=== PATIENT | male | born 1980 | race Caucasian/White ===

== ENCOUNTER 2022-02-25 12:46 | Emergency (ER) | payer OTHER, SELFPAY ==
--- NOTE | ~2022-02-25 | XR_ITS ---
EXAMINATION: XR ankle LT min 3V DATE: 02/25/2022 13:05 INDICATION: Left ankle inversion injury. Left ankle pain. TECHNIQUE: 4 views of left ankle were obtained. COMPARISON: None. FINDINGS: Bone alignment is normal. No fracture. Joint spaces are normal. There are enthesophytes at the posterior and plantar aspects of calcaneal tuberosity. IMPRESSION: 1. No fracture. Reviewed, dictated and finalized at location A. IMPRESSION: 1. No fracture.
--- NOTE | 2022-02-25 12:54 | ED.LOWEXIN ---
HPI - Extremity Injury (Lower) General Chief Complaint: Extremity Injury, Lower Stated Complaint: Left Ankle Injury Time Seen by Provider: 02/25/22 12:55 Source: patient and RN notes reviewed History of Present Illness HPI Narrative: Patient is a 41-year-old male who presents the urgent care with complaints of left ankle pain. Patient states that he was at work, picking up a car from a customer, and rolled the ankle. Patient states that occurred approximately 1 hour ago. States that he has no pain at rest only pain with ambulation and weightbearing. Patient has not done anything [id number] for his pain prior to arrival. No other acute complaints or injuries. No acute distress noted. Patient aware of the plan of care. Some parts of this dictation were generated by voice recognition software and may contain typographical and/or grammatical inaccuracies. Related Data Home Medications Medication Instructions Recorded Confirmed No Home Medications 02/25/22 02/25/22 Allergies Allergy/AdvReac Type Severity Reaction Status Date / Time No Known Allergies Allergy Verified 02/25/22 13:07 Review of Systems Review of Systems: CONSTITUTIONAL: Denies fever, chills, or sweats. EYES: Denies visual changes, redness, or discharge. ENT: Denies rhinorrhea, congestion, sore throat, or otalgia. CARDIOVASCULAR: Denies chest pain, palpitations, or edema. RESPIRATORY: Denies cough or dyspnea. GASTROINTESTINAL: Denies abdominal pain, nausea, vomiting, or diarrhea. GENITOURINARY: Denies dysuria or hematuria. SKIN: Denies rash or itching. MUSCULOSKELETAL: Reports of left ankle pain and swelling NEUROLOGIC: Denies headache, numbness, or weakness. All other systems reviewed are negative, except as documented in HPI. Exam Narrative: GENERAL: This is a well-nourished, well-developed patient, in no apparent distress. HEAD: normocephalic, atraumatic. EYES: PERRL. Sclera clear/white. Vision is grossly intact. EARS: External ears normal NOSE: External nose normal with no obvious nasal discharge, nares without redness, no rhinorrhea. THROAT: Mucous membranes moist NECK: Neck supple SKIN: warm, intact with no suspicious lesions or rash, good texture and turgor. NEURO: awake, alert, and oriented to person, place and time. There were no obvious focal neurologic abnormalities. EXTREMITIES: Mild tenderness and edema noted to the posterior lateral left malleolus with exacerbated pain on flexion and weightbearing. Positive strong left pedal pulse with capillary refill less than 2 seconds. No obvious deformity to left lower extremity. Course Course Level of Care: Express Care Visit Vital Signs Vital signs: Vital Signs Temperature 98.5 F 02/25/22 12:55 Pulse Rate 84 02/25/22 12:55 Respiratory Rate 16 02/25/22 12:55 Blood Pressure 204/92 H 02/25/22 12:55 Pulse Oximetry 98 02/25/22 12:55 Oxygen Delivery Room Air 02/25/22 12:55 Temperature 98.5 F 02/25/22 12:55 Pulse Rate 84 02/25/22 12:55 Respiratory Rate 16 02/25/22 12:55 Blood Pressure 204/92 H 02/25/22 12:55 Pulse Oximetry 98 02/25/22 12:55 Oxygen Delivery Room Air 02/25/22 12:55 Reviewed-patient is informed that they may have pre-hypertension or hypertension based on a blood pressure reading in the department. I recommend the patient call the primary care provider listed on their discharge instructions or a physician of their choice this week to arrange follow-up for further evaluation of possible pre-hypertension or hypertension. MDM - Extremity Injury (Lower) MDM Narrative Medical decision making narrative: Reviewed x-ray results with the patient. He is aware that there is no fracture deformity noted to the left ankle. Advised the patient to keep it elevated with ice/Tylenol/ibuprofen for the next 3 to 5 days. Limit your weightbearing activity and avoid any strenuous activity. Wear the Eric wrap in a supportive shoe as directed. Follow-u
[2022-02-25 12:55] VITALS: BP 204/92; PULSE 84; RESP 16; TEMP 36.9; O2SAT 98
[2022-02-25 13:15] VITALS: BP 171/96
== END 2022-02-25 13:15 | disposition home or self-care (01) ==
PROVIDERS: Emergency Provider Nurse Practitioner Family
DX: S93.402A Sprain of unspecified ligament of left ankle, initial encounter (principal); S96.912A Strain of unspecified muscle and tendon at ankle and foot level, left foot, initial encounter; X50.9XXA Other and unspecified overexertion or strenuous movements or postures, initial encounter
CPT/HCPCS: 73610; 99213; G0463

== ENCOUNTER 2022-12-27 11:17 | Emergency (ER) | payer OTHER, SELFPAY ==
--- NOTE | ~2022-12-27 | XR_ITS ---
XR elbow RT min 3V 12/27/2022 12:23 Indication: Right elbow pain. Procedure: 4 views right elbow Comparison: No prior studies for comparison. Findings: There is a joint effusion with displacement of the ventral and posterior fat pads. There ar e mild degenerative changes of the elbow. There are small marginal osteophytes. No foreign bodies. Impression: 1: No acute fracture. Moderate joint effusion. Recommend conservative therapy with repeat x-rays in 7 -to 10 days as clinically warranted. Reviewed, dictated and finalized at location A. Impression: 1: No acute fracture. Moderate joint effusion. Recommend conservative therapy w ith repeat x-rays in 7-to 10 days as clinically warranted.
[2022-12-27 11:25] VITALS: BP 163/96; PULSE 72; RESP 20; TEMP 37.1; O2SAT 99
[2022-12-27] MEDS: KETOROLAC (*BKC) 60 MG/2 ML VIAL IM (12:14)
--- NOTE | 2022-12-27 12:25 | ED.GENADULT ---
HPI - General Adult General Chief complaint: Extremity Injury, Upper Stated complaint: Right Elbow Pain Source: patient Mode of arrival: ambulatory Limitations: no limitations History of Present Illness HPI narrative: Patient presents for evaluation of right elbow pain. Symptom onset 2 days ago. He works for a [employer]. He cannot identify any specific precipitating cause or injury but believes it is possible that he did have an injury. Pain is constant, 2/10 with rest but 8/10 with movement. He tried taking ibuprofen for symptoms. He has decreased range of motion of the right elbow. He is left-hand dominant. No hx of similar symptoms. No hx of gout. Related Data Home Medications Medication Instructions Recorded Confirmed No Home Medications 02/25/22 12/27/22 Allergies Allergy/AdvReac Type Severity Reaction Status Date / Time No Known Allergies Allergy Verified 12/27/22 11:32 Review of Systems Review of Systems: CONSTITUTIONAL: Denies fever, chills, or sweats. EYES: Denies visual changes, redness, or discharge. ENT: Denies rhinorrhea, congestion, sore throat, or otalgia. CARDIOVASCULAR: Denies chest pain, palpitations, or edema. RESPIRATORY: Denies cough or dyspnea. GASTROINTESTINAL: Denies abdominal pain, nausea, vomiting, or diarrhea. GENITOURINARY: Denies dysuria or hematuria. SKIN: Denies rash or itching. MUSCULOSKELETAL: Reports right elbow pain with decreased range of motion NEUROLOGIC: Denies headache, numbness, dizziness, or weakness. PSYCHIATRIC: Denies anxiety or depression. PMFSH Past Medical History Medical History (Updated 12/27/22 @ 12:38 by JUANITA Oliveira, ) No pertinent past medical history Surgical History Surgical History No pertinent past surgical history Family History Family History Mother Family history non-contributory Social History Social History Substance use: never Additional occupation/education comments: Works for [employer] Gender identity (if verbalized by the patient): Male Spiritual care concerns: No Exam Narrative: GENERAL: Well-appearing, well-nourished, and in no acute distress. HEAD: Normocephalic, atraumatic. EYES: PERRLA and EOMI. ENT: Nares clear, no rhinorrhea or epistaxis. Mucous membranes moist. Oropharynx without tonsillar hypertrophy exudate or other lesions. Bilateral TMs pearly mcdowell nonbulging NECK: Supple. No adenopathy or masses. No carotid bruits or JVD CHEST: Clear to auscultation. No respiratory distress. No wheezes rales or rhonchi HEART: Regular rate and rhythm. No murmur heard. Normal peripheral pulses. ABDOMEN: Soft, nontender, nondistended, normal active bowel sounds. EXTREMITIES: There is swelling noted to the right elbow. No crepitus or deformity. Decreased range of motion of the right elbow with flexion, extension, pronation and supination. 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 NEURO: No focal deficits. Alert and oriented x3. PSYCH: Normal mood and affect. Course Course Emergency Course: This is a 42 year old male who presented for evaluation of right elbow pain. X-ray showed effusion. Provided with sling. Given Toradol here. Offered analgesics upon discharge which he declined. He will take ibuprofen for pain. Follow-up with ortho. Advised on RICE therapy. Pt in agreement with plan of care. Level of Care: Express Care Visit Vital Signs Vital signs: Vital Signs Temperature 37.1 C 12/27/22 11:25 Pulse Rate 72 12/27/22 11:25 Respiratory Rate 20 12/27/22 11:25 Blood Pressure 163/96 H 12/27/22 11:25 Pulse Oximetry 99 12/27/22 11:25 Oxygen Delivery Room Air 12/27/22 11:25 Temperature 37.1 C 12/27/22 11:25 Pulse Rate 72 12/27/22 11:25 Respiratory Ra
== END 2022-12-27 12:44 | disposition home or self-care (01) ==
PROVIDERS: Emergency Provider Nurse Practitioner
DX: M25.421 Effusion, right elbow (principal)
CPT/HCPCS: 73080; 96372; 99213; A4565; G0463; J1885

== ENCOUNTER 2023-12-15 08:37 | Outpatient (CLI) | payer OTHER, SELFPAY ==
[2023-12-15 08:53] LABS: Basophils Absolute Auto 0.01 K/mm3 (0.00-0.10); Basophils Percent Auto 0.2 % (0.0-1.0); Eosinophils Percent Auto 1.6 % (1.0-6.0); Hematocrit 45.5 % (40.0-54.0); Hemoglobin 15.4 g/dL (14.0-18.0); Immature Granulocyte Absolute 0.02 K/mm3 (0.00-0.00); Immature Granulocyte Percent A 0.3 % (0.0-0.0); Lymphocytes Absolute Auto 1.75 K/mm3 (1.10-4.50); Lymphocytes Percent Auto 28.4 % (18.0-42.0); Mean Corpuscular HGB Conc 33.8 g/dL (32-36); Mean Corpuscular Hemoglobin 26.6 pg (27.0-31.0); Mean Corpuscular Volume 78.7 fL (78.0-102.0); Mean Platelet Volume 9.5 fl (8.7-11.0); Monocytes Percent Auto 6.5 % (2.0-11.0); Neutrophils Absolute Auto 3.89 K/mm3 (1.70-7.20); Platelet Count Result 187 K/mm3 (150-420); Red Blood Count 5.78 M/mm3 (4.70-6.10); Red Cell Distribution Width 13.2 % (11.6-14.4); White Blood Count 6.2 K/mm3 (4.8-10.8)
[2023-12-15 09:18] LABS: Hemoglobin A1C 5.4 % (<5.7)
[2023-12-15 09:32] LABS: Alanine Aminotransferase 40 U/L (16-63); Albumin Level 4.1 g/dL (3.4-5.0); Alkaline Phosphatase 91 U/L (46-116); Anion Gap 11 mmol/L (4-12); Aspartate Amino Transferase 22 U/L (15-37); Bilirubin,Total 0.6 mg/dL (0.00-1.00); Blood Urea Nitrogen 16 mg/dL (7-18); Calcium 8.4 mg/dL (8.5-10.1); Carbon Dioxide 29 mmol/L (21-32); Chloride 107 mmol/L (98-108); Cholesterol 231 mg/dL (0-200); Estimated Glomerular Filt Rate > 60; Glucose 108 mg/dL (70-99); HDL Direct 45 mg/dL (40-60); LDL Cholesterol Calculated 144 mg/dL (<130); Osmolality Calculated 306 mOsm/kg (285-295); Sodium 147 mmol/L (136-145); Total Protein 6.6 g/dL (6.4-8.2); Triglycerides 209 mg/dL (0-150)
[2023-12-15 09:33] LABS: Thyroid Stimulating Hormone Reflex 2.21 u/IU/mL (0.36-3.74)
== END 2023-12-15 08:38 | disposition home or self-care (01) ==
PROVIDERS: PCP Family Medicine; Visit Provider Family Medicine
DX: Z00.00 Encounter for general adult medical examination without abnormal findings (principal); E11.9 Type 2 diabetes mellitus without complications; E03.9 Hypothyroidism, unspecified
CPT/HCPCS: 36415; 80053; 80061; 83036; 84443; 85025

== ENCOUNTER 2024-08-01 10:18 | Emergency (ER) | payer OTHER, SELFPAY ==
--- NOTE | 2024-08-01 10:20 | ED.BACK ---
HPI - Back Pain/Injury General Chief Complaint: Back Pain/Injury Stated Complaint: Back Injury Time Seen by Provider: 08/01/24 10:35 Source: patient and RN notes reviewed Mode of arrival: ambulatory Limitations: no limitations History of Present Illness HPI Narrative: 44-year-old male presents concern for back pain for 2 days. He reports mid back pain that feels like spasms. Reports the spasms wrap around to his abdomen. 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 He denies any direct injury or trauma. Reports he woke up with pain. He denies loss of bowel or bladder function, perianal anesthesia, weakness in any extremity, fever. He reports he has not taken his blood pressure medicine recently. He reports using topical pain medicine. MD elicited complaint: back pain Related Data Allergies Allergy/AdvReac Type Severity Reaction Status Date / Time No Known Allergies Allergy Verified 12/15/23 07:10 Review of Systems Review of Systems: CONSTITUTIONAL: Denies malaise, chills, sweats, or fever. CARDIOVASCULAR: Denies chest pain, palpitations, or edema. RESPIRATORY: Denies cough or dyspnea. GASTROINTESTINAL: Denies abdominal pain, nausea, vomiting, diarrhea, loss of bowel function GENITOURINARY: Denies dysuria, hematuria, frequency, loss of bladder function. SKIN: Denies rash or itching. MUSCULOSKELETAL: Reports mid back pain and spasming NEUROLOGIC: Denies numbness, weakness, or headache. All systems reviewed & are unremarkable except as noted in HPI and below PMFSH Past Medical History Medical History No pertinent past medical history Surgical History Surgical History No pertinent past surgical history Family History Family History Mother Family history non-contributory Social History Social History (Updated 12/15/23 @ 08:30 by Jihan Jacobsen) Smoking status: Former smoker Alcohol intake: never Substance use: never Do You Feel Safe in your Home?: Yes Lack of Transportation: No Lack of Food: Never True Current Housing: I Have Housing Concerned About Future Housing: No Difficulty Paying Gas/Electric Bills: No Difficulty Paying for Meds: No Currently Unemployed: No Education: High School Diploma/GED Additional occupation/education comments: Works for [employer] Gender identity (if verbalized by the patient): Male Spiritual care concerns: No Comments At time of signature, agree with nursing past medical, surgical, social and family history. There is no relevant family history pertinent to the presenting complaint Exam Narrative: GENERAL: Well-appearing, well-nourished, and in no acute distress. HEAD: Normocephalic, atraumatic. EYES: PERRLA and EOMI. NECK: Supple. No lymphadenopathy. CHEST: Clear to auscultation. No respiratory distress. HEART: Regular rate and rhythm. Distal pulses palpable and equal, cap refill <3 seconds ABDOMEN: Soft, nontender, no palpable or pulsatile masses. No CVA tenderness MUSCULOSKELETAL: Normal range of motion and strength in all extremities; 5/5 strength with hip flexion and extension, dorsiflexion and extension, knee flexion and extension, plantar flexion and extension. Normal sensation in dermatomal distributions with sensitivity to light touch and pain. No midline back tenderness to palpation. No paraspinal tenderness. Transfers from lying to sitting to standing. SKIN: Warm, dry, no rash. NEURO: No focal deficits. Alert and oriented x3. Normal gait. PSYCH: Normal mood and affect Course Course Emergency Course: Patient is aware of diagnosis, understands and agrees to treatment plan. Anticipatory guidance given. Patient agrees to follow-up as directed and is aware of reasons to seek care at the emergency department. Portions of this record may have been created with voice recognition software Level of Care: Express Care Visit Vital Signs Vital signs: Reviewed. MDM - Back Pain/Injury MDM Narrative Medical decision making narrative: I evaluated this in the express care. History is obtained from patient who is an independent historian and physical exam was performed.? Available medical records were reviewed. ? Exam findings and relevant testing show no acute concerns or changes; patient is non-toxic appearing and is in no distress. No risk factors or findings concerning for epidural abscess, diskitis, vertebral osteomyelitis, cord compression, cauda equina, vertebral fracture or bone malignancy, AAA, or pyelonephritis. Patient instructed to consider further imaging and workup through their primary care physician as an outpatient if symptoms persist. ? Differential diagnosis and treatment plan were discussed with the patient. Patient agrees with discussion and after shared medical decision making agrees with plan of care. All questions were answered to the patient's satisfaction. Patient is appropriate for outpatient treatment and follow-up. Critical Care Time Critical Care Time Critical Care Time: No Discharge Plan Discharge Clinical Impression: Back pain Patient Disposition: Home, Self-Care Condition: Stable Instructions: Back Pain (ED) Additional Instructions: Please follow up with your Primary Care Doctor within 48-72 hours - call for an appointment. Walking and other gentle exercising several times a week has been shown to improve back pain; bed rest is not recommended. Take prednisone, take muscle relaxers every 8 hours as needed for muscle spasm- do not drive or make any important decisions while on this medication for it can make you drowsy. You may apply heat or cold to the area as needed. If you experience any worsening pain, swelling, numbness, weakness please go to ER. Contact your doctor or go to the emergency department if you develop problems with bladder or bowel function, weakness or loss of feeling in one or both of your legs, or any other serious concerns. Patient Language: [place] Prescriptions: New cyclobenzaprine 10 mg tablet 10 mg PO TID PRN (Reason: muscle spasm) Qty: 20 0RF prednisone 50 mg tablet 50 mg PO DAILY 5 Days Qty: 5 0RF No Action atorvastatin 20 mg tablet 20 mg PO DAILY Qty: 90 0RF lisinopril 20 mg tablet 20 mg PO DAILY Qty: 90 0RF Follow-up/Referrals: UNKNOWN,DOCTOR [Non-Staff] - Stand Alone Forms: Work/School Release IP Time of Disposition: 10:44
[2024-08-01 10:31] VITALS: BP 201/108; PULSE 88; RESP 20; TEMP 36.9; O2SAT 98
== END 2024-08-01 10:49 | disposition home or self-care (01) ==
PROVIDERS: Emergency Provider Nurse Practitioner
DX: M54.6 Pain in thoracic spine (principal); Z87.891 Personal history of nicotine dependence
CPT/HCPCS: 99213; G0463

== ENCOUNTER 2024-10-14 09:41 | Emergency (ER) | payer OTHER, SELFPAY ==
--- NOTE | ~2024-10-14 | XR_ITS ---
EXAMINATION: XR knee RT min 4V DATE: 10/14/2024 10:32 INDICATION: Right knee pain and popping. TECHNIQUE: 4 views of right knee were obtained. COMPARISON: None. FINDINGS: Alignment is normal. No fracture. There is mild osteoarthritis of medial and patellofemoral compartments. There is a small knee joint effusion. IMPRESSION: 1. Mild right knee osteoarthritis. 2. Small right knee joint effusion. Reviewed, dictated and finalized at location A.
--- OUTSIDE RECORDS SUMMARY | 2024-10-14 09:43 | XMS_ITS | Clinical Summary ---
Author Organization [facility] Address [address] [place] [address] Phone Care Team Providers Care Medical Record Coder Name Role Phone Provider, None Primary Care Provider Unavailabl e Allergies No known active allergies Medications traMADol (ULTRAM) 50 MG Tablet Take 1-2 Tabs by mouth every 6 hours as needed for Pain. 20 Tab 0 09/11/2015 Active Active Problems No known active problems Social History Tobacco Use Types Packs/Day Years Used Date Smoking Tobacco: Former Cigarettes Q uit: 07/19/2008 Sex and Gender Information Value Date Recorded Sex Assigned at Not on file Legal Sex Male 10:08 PM CDT Gender Identity Not on file Sexual Orientation Not on file Last Filed Vital Signs Vital Sign Reading Time Taken Comments Blood Pressure 144/82 09/11/2015 7:34 AM ROBOTYPE OPERATOR Pulse 104 09/11/2015 9:10 AM ROBOTYPE OPERATOR Temperature 37.9 C (100.3 F) 09/11/2015 9:10 AM ROBOTYPE OPERATOR Respiratory Rate 18 09/11/2015 7:51 AM ROBOTYPE OPERATOR Oxygen Saturation 97% 09/11/2015 9:10 AM ROBOTYPE OPERATOR Inhaled Oxygen Concentration - - Weight 122.5 kg (270 lb) 09/11/2015 7:34 AM ROBOTYPE OPERATOR Height 182.9 cm (6') 09/11/2015 7:34 AM ROBOTYPE OPERATOR Body Mass Index 36.62 09/11/2015 7:34 AM ROBOTYPE OPERATOR Plan of Treatment Not on file Insurance [facility] Care Teams Medical Record Coder Relationship Specialty Start Date End Date Provider, None [place] PCP - General 07/09/15
[2024-10-14 09:46] VITALS: BP 152/92; PULSE 81; RESP 14; TEMP 37.2; O2SAT 97
--- NOTE | 2024-10-14 10:34 | ED_ITS ---
HPI - Extremity Injury (Lower) General Chief Complaint: Extremity Injury, Lower Stated Complaint: Swelling to Right Knee Time Seen by Provider: 10/14/24 10:14 Source: patient and RN notes reviewed Mode of arrival: ambulatory Limitations: no limitations History of Present Illness HPI Narrative: Patient presents today complaining of right medial knee pain and swelling x1 month, worse after he has been on his feet. Describes that he feels popping and grinding when he is up and working for long periods of time. He is also reporting some bulging at the medial portion of the knee and the popliteal fossa that is tender. This pain decreases with rest. Currently rates pain 2/10 and has been using icy Hot without much relief. Denies calf pain. States he has attempted to make an appointment with his PCP but has been unable to get a hold of anyone. Related Data Allergies Allergy/AdvReac Type Severity Reaction Status Date / Time No Known Allergies Allergy Verified 10/14/24 09:54 Review of Systems Review of Systems: CONSTITUTIONAL: Denies body aches, fever, chills, or sweats. EYES: Denies visual changes, redness, or discharge. ENT: Denies rhinorrhea, congestion, sore throat, or otalgia. CARDIOVASCULAR: Denies chest pain, palpitations, or edema. RESPIRATORY: Denies cough or dyspnea. GASTROINTESTINAL: Denies abdominal pain, nausea, vomiting, or diarrhea. GENITOURINARY: Denies dysuria or hematuria. SKIN: Denies rash, itching, or wounds. MUSCULOSKELETAL: + right knee pain swelling NEUROLOGIC: Denies headache, numbness, tingling, or weakness. PSYCH: Denies depression or anxiety. [facility] Past Medical History Medical History No pertinent past medical history Surgical History Surgical History No pertinent past surgical history Family History Family History Mother Family history non-contributory Social History Social History Smoking status: Former smoker Alcohol intake: never Substance use: never Do You Feel Safe in your Home?: Yes Lack of Transportation: No Lack of Food: Never True Current Housing: I Have Housing Concerned About Future Housing: No Difficulty Paying Gas/Electric Bills: No Difficulty Paying for Meds: No Currently Unemployed: No Education: High School Diploma/GED Additional occupation/education comments: Works for [employer] Gender identity (if verbalized by the patient): Male Spiritual care concerns: No Comments At time of signature, I have reviewed and agree with nursing past medical, surgical, social and family history unless otherwise noted. Please see nursing chart for further information. There is no relevant family history pertinent to the presenting complaint Exam Narrative: GENERAL: Well-appearing, well-nourished, and in no acute distress. HEAD: Normocephalic, atraumatic. EYES: EOMI. No redness or drainage. Conjunctivae normal. ENT: Mucous membranes pink and moist. NECK: Normal AROM. CHEST: No respiratory distress. EXTREMITIES: Right knee: Mild tenderness to the medial joint line. Mild generalized tenderness about the knee. Patient has some a large varicose veins to the posteromedial knee and popliteal fossa. No erythema. Distal sensation intact. Capillary refill normal. Pedal pulse is strong. Spider veins to the dorsum of the foot and ankle as well. No calf tenderness. Negative Homans. Full range of motion of the ankle and knee. SKIN: Warm, dry, no rash. Capillary refill normal. Normal skin turgor. NEURO: No focal deficits. Alert and oriented x3. Gait steady. PSYCH: Normal affect. No signs of depression or anxiety. Course Course Level of Care: Express Care Visit Vital Signs Vital signs: Vital Signs Temperature 99 F 10/14/24 09:46 Pulse Rate 81 10/14/24 09:46 Respiratory Rate 14 10/14/24 09:46 Blood Pressure 152/92 H 10/14/24 09:46 Pulse Oximetry 97 10/14/24 09:46 Oxygen Delivery Room Air 10/14/24 09:46 Temperature 99 F 10/14/24 09:46 Pulse Rate 81 10/14/24 09:46 Respiratory Rate 14 10/14/24 09:46 Blood Pressure 152/92 H 10/14/24 09:46 Pulse Oximetry 97 10/14/24 09:46 Oxygen Delivery Room Air 10/14/24 09:46 Reviewed MDM - Extremity Injury (Lower) MDM Narrative Medical decision making narrative: X-ray shows mild osteoarthritis and small joint effusion. Recommend daily meloxicam to see if this will help with patient's symptoms. Also recommend follow-up with PCP regarding swollen varicose veins. Patient has no red flag symptoms to suggest more serious etiology at this time. Patient agrees with plan. Anticipatory guidance given. Differential Diagnosis Differential diagnosis: Likely other (Varicose veins, arthritis, meniscus injury, ligamentous injury) Imaging Data Radiologist's impression: ITS Impressions Knee X-Ray 10/14/24 11:17 IMPRESSION: 1. Mild right knee osteoarthritis. 2. Small right knee joint effusion. Critical Care Time Critical Care Time Critical Care Time: No Discharge Plan Discharge Clinical Impression: Localized osteoarthritis of right knee Patient Disposition: Home, Self-Care Condition: Stable Instructions: Osteoarthritis (DC) Additional Instructions: Your x-ray shows arthritis and a small amount of fluid in your knee joint. Please take the meloxicam as prescribed. Follow-up with your PCP regarding your knee arthritis and varicose veins. Take the meloxicam as prescribed. Your blood pressure was elevated above 120/80 today at Urgent Care. This puts y ou above the threshold for follow up. Please schedule a followup visit with your personal physician as soon as possible, for further evaluation and treatment. Even blood pressure exceeding 120/80 may indicate pre-hypertension. Patient Language: [place] Prescriptions: New meloxicam 15 mg tablet 15 mg PO DAILY Qty: 14 0RF No Action amlodipine [Norvasc] 5 mg tablet 5 mg PO DAILY Qty: 90 3RF atorvastatin 20 mg tablet 20 mg PO DAILY Qty: 90 0RF lisinopril 20 mg tablet 20 mg PO DAILY Qty: 90 0RF Follow-up/Referrals: Raj Prather DO [Primary Care Provider] - Stand Alone Forms: Work/School Release IP Time of Disposition: 11:27
== END 2024-10-14 11:29 | disposition home or self-care (01) ==
PROVIDERS: Emergency Provider Nurse Practitioner; PCP Family Medicine
DX: M17.11 Unilateral primary osteoarthritis, right knee (principal); Z87.891 Personal history of nicotine dependence
CPT/HCPCS: 73564; 99213; G0463

== ENCOUNTER 2025-06-18 16:18 | Emergency (ER) | payer OTHER, SELFPAY ==
--- NOTE | ~2025-06-18 | XR_ITS ---
EXAMINATION: XR finger 1st LT min 2V, 06/18/2025 16:32 MANUFACTURING CLERK HISTORY: fall injury COMPARISON: No comparisons available. Findings: No acute fracture or malalignment. No significant degenerative changes. Soft tissues unremarkable. Impression: No acute fracture or malalignment. Reviewed, dictated and finalized at location P. FACTURING CLERK Impression: No acute fracture or malalignment.
--- NOTE | ~2025-06-18 | XR_ITS ---
EXAMINATION: XR wrist LT min 3V, 06/18/2025 16:20 DEVOPS ENGINEER HISTORY: fall pain base of 1st digit. COMPARISON: No comparisons available. Findings: No acute fracture or malalignment. No significant degenerative changes. Soft tissues unremarkable. Impression: No acute fracture or malalignment. Reviewed, dictated and finalized at location P. PS ENGINEER Impression: No acute fracture or malalignment.
--- OUTSIDE RECORDS SUMMARY | 2025-06-18 16:20 | XMS_ITS | Clinical Summary ---
Author Organization [facility] Address [address] [place] [address] Phone Care Team Providers Care Sales Order Coordinator Name Role Phone Provider, None Primary Care Provider Unavailabl e Allergies No known active allergies Medications traMADol (ULTRAM) 50 MG Tablet Take 1-2 Tabs by mouth every 6 hours as needed for Pain. 20 Tab 0 09/11/2015 Active Active Problems No known active problems Social History Tobacco Use Types Packs/Day Years Used Date Smoking Tobacco: Former Cigarettes 0 Q uit: 07/19/2008 Sex and Gender Information Value Date Recorded Sex Assigned at Not on file Legal Sex Male 10:08 PM CDT Gender Identity Not on file Sexual Orientation Not on file Last Filed Vital Signs Vital Sign Reading Time Taken Comments Blood Pressure 144/82 09/11/2015 7:34 AM UNDERGROUND PRODUCTION FOREPERSON Pulse 104 09/11/2015 9:10 AM UNDERGROUND PRODUCTION FOREPERSON Temperature 37.9 C (100.3 F) 09/11/2015 9:10 AM UNDERGROUND PRODUCTION FOREPERSON Respiratory Rate 18 09/11/2015 7:51 AM UNDERGROUND PRODUCTION FOREPERSON Oxygen Saturation 97% 09/11/2015 9:10 AM UNDERGROUND PRODUCTION FOREPERSON Inhaled Oxygen Concentration - - Weight 122.5 kg (270 lb) 09/11/2015 7:34 AM UNDERGROUND PRODUCTION FOREPERSON Height 182.9 cm (6') 09/11/2015 7:34 AM UNDERGROUND PRODUCTION FOREPERSON Body Mass Index 36.62 09/11/2015 7:34 AM UNDERGROUND PRODUCTION FOREPERSON Plan of Treatment Not on file Insurance [facility] Care Teams Sales Order Coordinator Relationship Specialty Start Date End Date Provider, None [place] PCP - General 07/09/15
[2025-06-18 16:26] VITALS: BP 161/104; PULSE 122; RESP 20; TEMP 37.1; O2SAT 98
--- NOTE | 2025-06-18 16:35 | ED.UPPEXIN ---
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 Patient reports that he has pain to the radial aspect of his wrist region and rooney aspect of the base of his thumb with some swelling noted and pain with movement of his wrist. Patient reports that he has no tingling or numbness to his left hand or fingers, radial pulse strong no obvious deformity... MD complaint: injury to: left, wrist and hand (thumb) Onset (ago): hour(s) (prior to arrival) Other injuries: none Handedness: left Place: outdoors Severity scale (1-10): 5 Exacerbating factors: movement of extremity Related Data Allergies Allergy/AdvReac Type Severity Reaction Status Date / Time No Known Allergies Allergy Verified 06/18/25 16:30 Review of Systems Review of Systems: CONSTITUTIONAL: Denies fever, chills, or sweats. EYES: Denies visual changes, redness, or discharge. ENT: Denies rhinorrhea, congestion, sore throat, or otalgia. CARDIOVASCULAR: Denies chest pain, palpitations, or edema. RESPIRATORY: Denies cough or dyspnea. GASTROINTESTINAL: Denies abdominal pain, nausea, vomiting, or diarrhea. GENITOURINARY: Denies dysuria or hematuria. SKIN: Denies rash or itching. MUSCULOSKELETAL: Denies back pain, positive for left wrist and left thumb pain, or myalgia. NEUROLOGIC: Denies headache, numbness, or weakness. PSYCHIATRIC: Denies anxiety or depression. All systems reviewed & are unremarkable except as noted in HPI and below PMFSH Past Medical History Medical History Fracture of right pelvis Obesity ALIVIA (obstructive sleep apnea) HTN (hypertension) HLD (hyperlipidemia) No pertinent past medical history Surgical History Surgical History No pertinent past surgical history Family History Family History Mother Family history non-contributory Social History Social History Smoking status: Former smoker Alcohol intake: never Substance use: never Lack of Transportation: No Lack of Food: Never True Current Housing: I Have Housing Concerned About Future Housing: No Difficulty Paying Gas/Electric Bills: No Difficulty Paying for Meds: No Currently Unemployed: No Education: High School Diploma/GED Additional occupation/education comments: Works for [email or web address] Gender identity (if verbalized by the patient): Male Spiritual care concerns: No Comments At time of signature, agree with nursing past medical, surgical, social and family history. There is no relevant family history pertinent to the presenting complaint Exam Narrative: GENERAL: Well-appearing, well-nourished,obese and in no acute distress. HEAD: Normocephalic, atraumatic. EYES: PERRLA and EOMI. ENT: Nares clear, no rhinorrhea or epistaxis. Mucous membranes moist. NECK: Supple. no lymphadenopathy CHEST: Clear to auscultation. No respiratory distress.SAO2 98% on room air HEART: Regular rate and rhythm. No murmur heard. Normal peripheral pulses. ABDOMEN: Soft, nontender, nondistended, normal active bowel sounds. EXTREMITIES: Normal range of motion. No edema.Exception noted to left wrist and base of left thumb rooney aspect with some swelling noted, pain to radial aspect of wrist area, strong radial pulse, sensation is intact no obvious deformity is able to move left thumb and wrist some with discomfort. SKIN: Warm, dry, no rash. NEURO: No focal deficits. Alert and oriented x3. Course Course Level of Care: Express Care Visit Vital Signs Vital signs: Vital Signs Temperature 37.1 C 06/18/25 16: Pulse Rate 122 H 06/18/25 16:26 Respiratory Rate 20 06/18/25 16:26 Blood Pressure 161/104 H 06/18/25 16:26 Pulse Oximetry 98 06/18/25 16:26 Oxygen Delivery Room Air 06/18/25 16:26 Temperature 37.1 C 06/18/25 16:26 Pulse Rate 122 H 06/18/25 16:26 Respiratory Rate 20 06/18/25 16:26 Blood Pressure 161/104 H 06/18/25 16:26 Pulse Oximetry 98 06/18/25 16:26 Oxygen Delivery Room Air 06/18/25 16:26 reviewed MDM Differential Diagnosis Differential Diagnosis: left wrist fracture, lef wrist sprain, contusion left thumb, fracture left thumb fall Imaging Data Attestation: I personally reviewed and interpreted this imaging study as follows: My impression: no fracture or mal alignment to left wrist, and left thumb Radiologist's impression: ITS Impressions Wrist X-Ray 06/18/25 16:48 Impression: No acute fracture or malalignment. Finger X-Ray 06/18/25 16:49 Impression: No acute fracture or [place] [address] XRay Report Signed Patient: Raul Draper : 1980 MR#: [id number] Age: 45 Acct:[id number] Loc: [facility] ADM Date: 06/18/[address]: Ordering Physician: Marleny Vicente APRN Date of Service: 06/18/25 Procedure(s): XR finger 1st LT min 2V Accession Number(s): [id number] cc: Raj Prather DO; Marleny Vicente APRN~ EXAMINATION: XR finger 1st LT min 2V, 06/18/2025 16:32 C D AREA SUPERVISOR HISTORY: fall injury COMPARISON: No comparisons available. Findings: No acute fracture or malalignment. No significant degenerative changes. Soft tissues unremarkable. Impression: No acute fracture or malalignment. Reviewed, dictated and finalized at location P. C D AREA SUPERVISOR Please be advised this is a medical document. It is intended for [id number]-bgez communication. It is written in medical language and may contain unfamiliar abbreviations or verbiage. Medical documents are intended to carry relevant information, facts as evident, and the clinical opinion of the practitioner at the time of the encounter. This report may have been done utilizing a voice recognition system. Attempts have been made to correct errors. However, there may be uncorrected grammatical, spelling, and recognition errors present. The file time of this note does not necessarily represent the time of service. Dictated By: Carlo Lujan MD 06/18/25 1649 Signed By: <Electronically signed by Carlo Lujan MD in OV> [address] [employer] [place] [id number] XRay Report Signed Patient: Raul Draper : 1980 MR#: [id number] Age: 45 Acct:[id number] Loc: [facility] ADM Date: 06/18/[address]: Ordering Physician: Marleny Vicente APRN Date of Service: 06/18/25 Procedure(s): XR wrist LT min 3V Accession Number(s): [id number] cc: Raj Prather DO; Marleny Vicente APRN~ EXAMINATION: XR wrist LT min 3V, 06/18/2025 16:20 C D AREA SUPERVISOR HISTORY: fall pain base of 1st digit. COMPARISON: No comparisons available. Findings: No acute fracture or malalignment. No significant degenerative changes. Soft tissues unremarkable. Impression: No acute fracture or malalignment. Reviewed, dictated and finalized at location P. C D AREA SUPERVISOR Please be advised this is a medical document. It is intended for abma-nm-sxag communication. It is written in medical language and may contain unfamiliar abbreviations or verbiage. Medical documents are intended to carry relevant information, facts as evident, and the clinical opinion of the practitioner at the time of the encounter. This report may have been done utilizing a voice recognition system. Attempts have been made to correct errors. However, there may be uncorrected grammatical, spelling, and recognition errors present. The file time of this note does not necessarily represent the time of service. Dictated By: Carlo Lujan MD 06/18/25 1648 Signed By: <Electronically signed by Carlo Lujan MD in OV> Critical Care Time Critical Care Time Critical Care Time: No Discharge Plan Discharge Clinical Impression: Contusion of left wrist Qualifiers: Encounter type: initial encounter Qualified Code(s): S60.212A - Contusion of left wrist, initial encounter Contusion of left thumb Qualifiers: Encounter type: initial encounter Damage to nail status: without damage Qualified Code(s): S60.012A - Contusion of left thumb without damage to nail, initial encounter Patient Disposition: Home Condition: Stable Instructions: Antibiotic Form, Wrist Injury (ED) Additional Instructions: Elastic wrap or orthopedic splint as directed for comfort for the next 5-7 days Tylenol for lesser pain Ibuprofen regularly for the next 2-3 days for the inflammation Follow-up with orthopedic surgeon if any further complaints Follow-up with PCP if further problems or concerns Ice to the area 20-30 minutes 4-6 times a day Elevate above heart If your symptoms persist, change or worsen significantly before you can contact your personal physician then please, without delay, go to the emergency department for further evaluation. Follow-up with PCP in 7-10 days or sooner if needed Follow up with PCP soon in regards to your blood pressure which is elevated above threshold for referral. Blood pressure above 120/80 may indicate pre-hypertension. 161/104 Patient Language: Gambian Prescriptions: No Action amlodipine [Norvasc] 5 mg tablet 5 mg PO DAILY Qty: 90 3RF Zepbound 2.5 mg/0.5 mL pen injector 2.5 mg subcut WEEKLY Qty: 2 0RF Rx Instructions: for 4 weeks lisinopril 20 mg tablet 20 mg PO DAILY Qty: 90 0RF bupropion HCl 300 mg tablet extended release 24 hr 300 mg PO QAM Qty: 90 1RF atorvastatin 20 mg tablet 20 mg PO DAILY Qty: 90 1RF Follow-up/Referrals: Raj Prather DO [Primary Care Provider, Family Practice] Stand Alone Forms: Work/School Release IP Time of Disposition: 16:57 Quality [place] Coma Scale Eyes: Open Verbal: Oriented and Alert Motor: Follows Commands [place] Coma Total Score: 15
== END 2025-06-18 17:03 | disposition home or self-care (01) ==
PROVIDERS: Emergency Provider Registered Nurse; PCP Family Medicine
DX: S60.212A Contusion of left wrist, initial encounter (principal); S60.012A Contusion of left thumb without damage to nail, initial encounter; W00.0XXA Fall on same level due to ice and snow, initial encounter; I10 Essential (primary) hypertension; E78.5 Hyperlipidemia, unspecified; E66.9 Obesity, unspecified; Z68.41 Body mass index [BMI] 40.0-44.9, adult
CPT/HCPCS: 73110; 73140; 99213; G0463